=== PATIENT | female | born 1990 | race Two or more races ===

== ENCOUNTER 2023-12-02 12:40 | Emergency (ER) | payer MEDICAID, OTHER ==
[~2023-12-02] VITALS: Ht 175.3 cm; Wt 159.7 kg
[2023-12-02] MEDS ORDERED: cefTRIAXone SOD 1,000 MG VL IM ONE (14:00)
[2023-12-02 14:08] VITALS: BP 132/88; PULSE 73; RESP 20; TEMP 97.7; O2SAT 96
[2023-12-02] MEDS ORDERED: PRED20TA2 PO (14:11)
[2023-12-02] MEDS ORDERED: CEPH500C PO (14:11)
[2023-12-02] MEDS ORDERED: PROM1SOL4 PO (14:11)
== END 2023-12-02 14:21 | disposition home or self-care (01) ==
LOC: ER 12:40
DX: J20.9 Acute bronchitis, unspecified (principal); J03.90 Acute tonsillitis, unspecified; I10 Essential (primary) hypertension; F12.10 Cannabis abuse, uncomplicated
CPT/HCPCS: 71046; 96372; 99283; J0696

== ENCOUNTER 2023-12-15 15:38 | Emergency (ER) | payer MEDICAID ==
[~2023-12-15] VITALS: Ht 175.3 cm; Wt 160.8 kg
[2023-12-15 15:38] VITALS: BP 133/87; RESP 20; O2SAT 97
[~2023-12-15 15:38] MED LIST: CEPH500C PO; PRED20TA2 PO; PROM1SOL4 PO
[2023-12-15 16:25] VITALS: PULSE 78
[2023-12-15 16:55] LABS: Basophils # (auto) 0.1 10 ^3/uL (0-0.2); Eosinophils # (auto) 0 10 ^3/uL (0-0.8); Eosinophils % (auto) 0.1 % (0.0-7.0); Hematocrit 39.3 % (36.0-46.0); Hemoglobin 12.3 g/dL (12.2-16.2); Lymphocytes # (auto) 2.5 10 ^3/uL (0.4-5.4); Lymphocytes % (auto) 21.2 % (10.0-50.0); Mean Corpuscular Hemoglobin 21.8 pg (28.0-32.0); Mean Corpuscular Hgb Conc. 31.3 g/dL (32.0-36.0); Mean Corpuscular Volume 69.5 fL (80.0-100.0); Monocytes # (auto) 0.9 10 ^3/uL (0-1.3); Monocytes % (auto) 7.9 % (0.0-12.0); Neutrophils # (auto) 8.2 10 ^3/uL (1.6-8.6); Neutrophils % (auto) 69.8 % (37.0-80.0); Nucleated Red Blood Cells % 0.1 %; Red Blood Cells 5.65 10^6/uL (4.0-5.20); Red Cell Distribution Width 17.8 % (11.8-14.3); White Blood Cell 11.8 10^3/uL (4.4-10.8)
[2023-12-15 17:09] LABS: Alanine Aminotransferase 16 U/L (7-40); Alkaline Phosphatase 80 U/L (46-116); Anion Gap 6 (5-15); Aspartate Aminotransferase 15 U/L (13-40); BUN/Creatinine Ratio 14.3 (10.0-20.0); Blood Urea Nitrogen 12 mg/dL (9-23); Calcium 9.6 mg/dL (8.5-10.1); Carbon Dioxide 28 mmol/L (20-30); Chloride 102 mmol/L (98-107); Glucose 86 mg/dL (74-106); Potassium 3.8 mmol/L (3.5-5.1); Sodium 136 mmol/L (136-145)
[2023-12-15 17:10] LABS: Albumin 4.3 g/dL (3.2-4.8); Bilirubin, Total 0.4 mg/dL (0.2-1.0); Total Protein 7.3 g/dL (5.7-8.2)
== END 2023-12-15 20:51 | disposition home or self-care (01) ==
LOC: ER 15:38
DX: I95.1 Orthostatic hypotension (principal); R10.2 Pelvic and perineal pain; R42 Dizziness and giddiness; F12.10 Cannabis abuse, uncomplicated; Z79.899 Other long term (current) drug therapy
CPT/HCPCS: 36415; 80053; 84443; 84702; 85025; 93005

== ENCOUNTER 2023-12-23 03:51 | Emergency (ER) | payer MEDICAID ==
[~2023-12-23] VITALS: Ht 175.3 cm; Wt 160.4 kg
[2023-12-23] MEDS ORDERED: HYDR50CA PO (05:25)
[2023-12-23 05:53] VITALS: BP 125/89; PULSE 85; RESP 18; TEMP 97.8; O2SAT 95
== END 2023-12-23 05:56 | disposition home or self-care (01) ==
LOC: ER 03:51
DX: F41.9 Anxiety disorder, unspecified (principal); I10 Essential (primary) hypertension; E03.9 Hypothyroidism, unspecified
CPT/HCPCS: 81025

== ENCOUNTER 2024-06-12 13:49 | Emergency (ER) | payer MEDICAID ==
[~2024-06-12] VITALS: Ht 175.3 cm; Wt 154.0 kg
[~2024-06-12 13:49] MED LIST changes: +HYDR50CA PO
[2024-06-12 14:15] LABS: Basophils # (auto) 0.1 10 ^3/uL (0-0.2); Hematocrit 38.5 % (36.0-46.0); Hemoglobin 12.3 g/dL (12.2-16.2); Mean Corpuscular Hemoglobin 21.7 pg (28.0-32.0)
[2024-06-12 14:18] LABS: Basophils % (auto) 0.8 % (0.0-2.0); Eosinophils # (auto) 0.1 10 ^3/uL (0-0.8); Eosinophils % (auto) 0.6 % (0.0-7.0); Lymphocytes % (auto) 22.1 % (10.0-50.0); Mean Corpuscular Hgb Conc. 32.1 g/dL (32.0-36.0); Mean Corpuscular Volume 67.6 fL (80.0-100.0); Monocytes # (auto) 0.7 10 ^3/uL (0-1.3); Monocytes % (auto) 7.1 % (0.0-12.0); Neutrophils # (auto) 6.4 10 ^3/uL (1.6-8.6); Neutrophils % (auto) 69.4 % (37.0-80.0); White Blood Cell 9.3 10^3/uL (4.4-10.8)
[2024-06-12 14:45] LABS: Alanine Aminotransferase 14 U/L (7-40); Albumin 4.4 g/dL (3.2-4.8); Alkaline Phosphatase 81 U/L (46-116); Anion Gap 8 (5-15); Aspartate Aminotransferase 9 U/L (13-40); BUN/Creatinine Ratio 17.1 (10.0-20.0); Bilirubin, Total 0.5 mg/dL (0.2-1.0); Blood Urea Nitrogen 12 mg/dL (9-23); Calcium 9.4 mg/dL (8.7-10.4); Carbon Dioxide 23 mmol/L (20-30); Chloride 107 mmol/L (98-107); Glucose 91 mg/dL (74-106); Magnesium 1.8 mg/dL (1.6-2.6); Potassium 4.3 mmol/L (3.5-5.1); Sodium 138 mmol/L (136-145); Total Protein 7.4 g/dL (5.7-8.2)
[2024-06-12 14:46] LABS: Triglycerides 93 mg/dL (< 150)
[2024-06-12 14:47] LABS: LDL Cholesterol 133 mg/dL (< 100)
[2024-06-12 14:48] LABS: Cholesterol 199 mg/dL (< 200); HDL Cholesterol 55 mg/dL (40-59)
[2024-06-12 16:37] LABS: Urine Bacteria FEW /hpf (None Seen); Urine Blood 2+ /uL (Negative); Urine Clarity Clear (Clear); Urine Color Yellow (Yellow); Urine Mucus FEW (None Seen); Urine Protein, UAD 3+ (Negative); Urine Specific Gravity 1.024 (1.001-1.035); Urine Urobilinogen Normal (Negative); Urine WBC 2 /hpf (0 - 5)
[2024-06-12 17:03] LABS: Free T3 2.46 pg/mL (2.3-4.2); Free T4 (Free Thyroxine) 1.18 ng/dL (0.89-1.76)
[2024-06-12] MEDS: MORPHINE SULFATE 4 MG/ML SYR/VIAL IM ONE (17:11)
[2024-06-12 17:20] VITALS: BP 132/87; PULSE 83; RESP 17; TEMP 98.7; O2SAT 97
[2024-06-12] MEDS: KETOROLAC TROMETH 60MG/2ML VIAL IM ONE (17:20)
[2024-06-12] MEDS: ACETAMINOPHEN 325 MG TAB PO ONE (17:20)
[2024-06-12] MEDS ORDERED: DIA5T PO (17:43)
[2024-06-12] MEDS ORDERED: NAP500T PO (17:43)
== END 2024-06-12 18:26 | disposition home or self-care (01) ==
LOC: ER 13:52
DX: R07.89 Other chest pain (principal); E86.0 Dehydration; F12.10 Cannabis abuse, uncomplicated; I10 Essential (primary) hypertension; F41.9 Anxiety disorder, unspecified; Z79.899 Other long term (current) drug therapy
CPT/HCPCS: 36415; 71045; 80053; 80061; 81001; 83036; 83735; 83880; 84439; 84443; 84481; 84484; 85025; 93005; 96372; 99285; J1885